=== PATIENT | male | born 1985 | race Caucasian/White ===

== ENCOUNTER 2021-04-25 18:10 | Emergency (ER) | payer MEDICAID ==
[~2021-04-25] VITALS: Ht 182.9 cm; Wt 102.1 kg
[2021-04-25 18:39] VITALS: BP 130/85
--- NOTE | 2021-04-25 19:38 | NUR ---
PATIENT LEFT WITHOUT BEING SEEN BY DR. Lea. NO FURTHER CARE PROVIDED FOR PATIENT.
== END 2021-04-25 19:38 | disposition left against medical advice (07) ==
LOC: MED 18:10
DX: H92.02 Otalgia, left ear (principal); Z53.21 Procedure and treatment not carried out due to patient leaving prior to being seen by health care provider